=== PATIENT | female | born 1935 | race Caucasian/White ===

== ENCOUNTER → 2017-06-30 | Outpatient (CLI) | payer BC ==
[2017-06-30 13:01] LABS: HEMATOCRIT 39.1 % (37-47); MEAN CORPUSCULAR HEMOGLOBIN 30.5 pg (25-34); MEAN CORPUSCULAR HGB CONC 32.5 g/dl (32-36); MEAN PLATELET VOLUME 8.7 fL (7.4-10.4); PLATELET COUNT 212 K/uL (130-400); RED BLOOD COUNT 4.16 M/uL (4.2-5.4); WHITE BLOOD COUNT 5.69 K/uL (4.8-10.8)
[2017-06-30 13:34] LABS: ALT/SGPT 18 U/L (12-78); BLOOD UREA NITROGEN 12 mg/dl (7-18); BUN/CREATININE RATIO 12.7 (10-20); CALCIUM 9.1 mg/dl (8.5-10.1); CARBON DIOXIDE 32 mmol/L (21-32); CHLORIDE 105 mmol/L (98-107); CHOLESTEROL 208 mg/dl (0-200); CREATININE 0.97 mg/dl (0.60-1.20); GLUCOSE 91 mg/dl (70-99); SODIUM 141 mmol/L (136-145); TRIGLYCERIDES 95 mg/dl (0-150); VERY LOW DENSITY LIPOPROT CALC 19 mg/dl
[2017-06-30 13:37] LABS: HDL CHOLESTEROL 70 mg/dl; LDL CHOLESTEROL CALCULATED 119 mg/dl; TOTAL IRON BINDING CAPACITY 280 mcg/dl (250-450)
== END | disposition home or self-care (01) ==
LOC: C.LABMFLN 09:35
PROVIDERS: ATTEND Family Medicine
DX: E78.00 Pure hypercholesterolemia, unspecified (principal); D64.9 Anemia, unspecified